=== PATIENT | male | born 1980 | race Caucasian/White ===

== ENCOUNTER 2025-06-25 13:03 | Emergency (ER) | payer OTHER ==
[2025-06-25 13:32] VITALS: BP 128/90; PULSE 54; RESP 19; TEMP 98.6; BMI 29.6
== END 2025-06-25 13:50 | disposition home or self-care (01) ==
LOC: FER 13:03
DX: S62.305A Unspecified fracture of fourth metacarpal bone, left hand, initial encounter for closed fracture (principal); S62.307A Unspecified fracture of fifth metacarpal bone, left hand, initial encounter for closed fracture; X58.XXXA Exposure to other specified factors, initial encounter
CPT/HCPCS: 99283-25